=== PATIENT | female | born 1960 | race African-American/Black ===

== ENCOUNTER 2018-11-06 17:26 | Inpatient (IN) | payer OTHER ==
[2018-11-06 17:44] VITALS: BMI 20.2
--- NOTE | 2018-11-06 18:38 | HP ---
CIWA Score Nausea/Vomitin-No Nausea/No Vomiting Muscle Tremors: 1-None Visible, but [place] Anxiety: 3 Agitation: 3 Paroxysmal Sweats: 2 Orientation: 1-Uncertain about Date Tacttile Disturbances: 0-None Auditory Disturbances: 0-None Visual Disturbances: 0-None Headache: 3-Moderate CIWA-Ar Total Score: 13 - Admission Criteria OASAS Guidelines: Admission for Medically Managed Detox: Requires at least one of the followin. CIWA greater than 12 2. Seizures within the past 24 hours 3. Delirium tremens within the past 24 hours 4. Hallucinations within the past 24 hours 5. Acute intervention needed for co occurring medical disorder 6. Acute intervention needed for co occurring psychiatric disorder 7. Severe withdrawal that cannot be handled at a lower level of care (continued vomiting, continued diarrhea, abnormal vital signs) requiring intravenous medication and/or fluids 8. Patient presents the following: CIWA greater than 12 Admission Criteria Met: Admission criteria met Admission ROS S - HPI Chief Complaint: " i need to get off the pills" Allergies/Adverse Reactions: Allergies Allergy/AdvReac Type Severity Reaction Status Date / Time No Known Allergies Allergy Verified 09/03/15 15:03 History of Present Illness: 58 yo female with hx of nicotine, nicola and xanax dependence is here seeking detox , patient is self referred. Last detox [facility] August 2015. Pmhx: Hep C, HTN. Denies suicidal / homicidal ideation or hx of suicide attempts. Patient is linked to [facility] at [place] on methadone maintenance 70 mg , last medicated 11/05/18. Denies hx of seizures or blackouts. Exam Limitations: No Limitations - Ebola screening Have you traveled outside of the country in the last 21 days: No (N) Have you had contact with anyone from an Ebola affected area: No Have you been sick,other than usual withdrawal symptoms: No Do you have a fever: No - Review of Systems Constitutional: Loss of Appetite, Changes in sleep, Weakness, Unintentional Wgt. Loss (20 lbs in the past six months) EENT: reports: No Symptoms Reported Respiratory: reports: No Symptoms reported Cardiac: reports: No Symptoms Reported GI: reports: Poor Appetite, Poor Fluid Intake, Abdominal cramping : reports: No Symptoms Reported Musculoskeletal: reports: No Symptoms Reported Integumentary: reports: No Symptoms Reported Neuro: reports: Headache Endocrine: reports: Increased Thirst Psychiatric: reports: Orientated x3, Anxious Other Systems: Reviewed and Negative Patient History - Patient Medical History Hx Anemia: No Hx Asthma: No Hx Chronic Obstructive Pulmonary Disease (COPD): No Hx Cancer: No Hx Cardiac Disorders: No Hx Hypertension: Yes (on meds.) Hx Hypercholesterolemia: No Hx Pacemaker: No HX Cerebrovascular Accident: No Hx Seizures: No Hx Dementia: No Hx Diabetes: No Hx Gastrointestinal Disorders: No Hx Liver Disease: Yes (Hep C) Hx Genitourinary Disorders: No Hx Sexually Transmitted Disorders: No Hx Renal Disease (ESRD): No Hx Thyroid Disease: No Hx Human Immunodeficiency Virus (HIV): No Hx Hepatitis C: Yes (treated) Hx Depression: Yes (past psych eval) Hx Suicide Attempt: No Hx Bipolar Disorder: No Hx Schizophrenia: No - Patient Surgical History Past Surgical History: No - PPD History Previous Implant?: No Documented Results: Negative w/o proof Date: 09/05/15 PPD to be Administered?: Yes - Smoking Cessation Smoking history: Current every day smoker Have you smoked in the past 12 months: Yes Aproximately how many cigarettes per day: 3 Hx Chewing Tobacco Use: No Initiated information on smoking cessation: Yes 'Breaking Loose' booklet given: 11/06/18 - Substance & Tx. History Hx Alcohol Use: Yes Hx Substance Use: Yes Substance Use Type: Cocaine, Tranquilizers Hx Substance Use Treatment: Yes - Substances Abused xanax Route: Oral Frequency: Daily Amount used: 2 mg Age of first use: 58 Date of Last Use: 10/23/18 klonopin Route: Oral Frequency: Daily Amount used: 1 mg Age of first use: 58 Date of Last Use: 11/05/18 Cocaine Route: Smoking Frequency: 3-6 times per week Amount used: $40 Age of first use: 24 Date of Last Use: 11/05/18 Family Disease History - Family Disease History Family Disease History: Heart Disease: Mother (htn), Other: Father (etoh) Admission Physical Exam [facility] - Vital Signs Vital Signs: Vital Signs - 24 hr 11/06/18 17:29 Temperature 97.7 F Pulse Rate 71 Respiratory 18 Rate Blood Pressure 127/83 - Physical General Appearance: Yes: Appropriately Dressed, Thin, Sweating, Anxious HEENTM: Yes: EOMI, Hearing grossly Normal, Normal ENT Inspection, Normocephalic , Normal Voice, RU, Pharynx Normal, Tm's normal Respiratory: Yes: Chest Non-Tender, Lungs Clear, Normal Breath Sounds, No Respiratory Distress, No Accessory Muscle Use Neck: Yes: Within Normal Limits Breast: Yes: Breast Exam Deferred Cardiology: Yes: Regular Rhythm, Regular Rate Abdominal: Yes: Normal Bowel Sounds, Non Tender, Flat, Soft Genitourinary: Yes: Within Normal Limits Back: Yes: Normal Inspection Musculoskeletal: Yes: full range of Motion, Gait Steady, Pelvis Stable Extremities: Yes: Normal Capillary Refill, Normal Inspection, Normal Range of Motion Neurological: Yes: alpine patroller II-XII NML intact, Fully Oriented, Alert, Motor Strength 5/5, Depressed Affect Integumentary: Yes: Normal Color, Warm, Moist Lymphatic: Yes: Within Normal Limits - Addiitonal Findings: Patient reports missed her Methadone dose today at her program, reports needed to attend to her sick mother this morning. c/o of mild opiod withdrawal. utox positive MTD, BZO, NICOLA. Will give one time dose of 20 mg tonight until methadone dose is verified with her program in the morning. - Diagnostic (1) Cocaine dependence Current Visit: Yes Status: Acute Qualifiers: Substance use status: uncomplicated Qualified Code(s): F14.20 - Cocaine dependence, uncomplicated (2) Opioid dependence on agonist therapy Current Visit: Yes Status: Chronic Comment: [facility] on methdone [place] 70 mg qd, last medicated yesterday 11/05/18. (3) Sedative, hypnotic or anxiolytic dependence with withdrawal, uncomplicated Current Visit: Yes Status: Acute (4) Hypertension Current Visit: Yes Status: Chronic Qualifiers: Hypertension type: essential hypertension Qualified Code(s): I10 - Essential (primary) hypertension (5) Hx of hepatitis C Current Visit: Yes Status: Chronic (6) At risk for dehydration due to poor fluid intake Current Visit: Yes Status: Acute (7) Nicotine dependence Current Visit: Yes Status: Acute Qualifiers: Nicotine product type: cigarettes Substance use status: uncomplicated Qualified Code(s): F17.210 - Nicotine dependence, cigarettes, uncomplicated Cleared for Admission [facility] - Detox or Rehab S Level of Care: Medically Managed Detox Regimen/Protocol: Valium S Breath Alcohol Content Breath Alcohol Content: 0 Urine Pregancy Test - Result Urine Test Results: Negative- NO Line Present Urine Drug Screen - Results Drug Screen Negative: No Urine Drug Screen Results: NICOLA-Cocaine, BZO-Benzodiazepines, MTD-Methadone Inpatient Rehab Admission - Rehab Decision to Admit Inpatient rehab admission?: No
[2018-11-06] MEDS ORDERED: NICOTINE POLACRILEX 2 MG GUM BC PRN (18:48)
[2018-11-06] MEDS ORDERED: MENTHOL/PHENOL 1 EACH UD MM PRN (18:48)
[2018-11-06] MEDS ORDERED: MAG HYDROX/AL HYDROX/SIMETH 30 ML UNIT-DOSE CUP PO PRN (18:48)
[2018-11-06] MEDS ORDERED: ACETAMINOPHEN 325 MG TABLET (FP) PO PRN (18:48)
[2018-11-06] MEDS ORDERED: MAGNESIUM CITRATE 300 ML BOTTLE PO PRN (18:48)
[2018-11-06] MEDS ORDERED: guaiFENesin/D-METHORPHAN HB 10 ML UNIT-DOSE CUPS PO PRN (18:48)
[2018-11-06] MEDS ORDERED: LOPERAMIDE HCL 2 MG CAPSULE PO PRN (18:48)
[2018-11-06] MEDS ORDERED: IBUPROFEN 400 MG TABLET (FP) PO PRN (18:48)
[2018-11-06] MEDS ORDERED: P-EPHED 60MG/TRIPROLIDI 2.5MG TABLET PO PRN (18:48)
[2018-11-06] MEDS ORDERED: MAGNESIUM HYDROX 2400MG/30ML ORAL SUSPENSION 30 ML CUP PO PRN (18:48)
[2018-11-06] MEDS ORDERED: METHADONE HCL 10 MG TABLET PO ONE (22:15)
[2018-11-06] MEDS ORDERED: diazePAM 5 MG TABLET PO ONE (22:15)
[2018-11-06] MEDS: diazePAM 5 MG TABLET PO SCH (23:17)
[2018-11-06] MEDS: THIAMINE HCL 100 MG TABLET (FP) PO SCH (23:19)
[2018-11-06 23:33] LABS: URINE APPEARANCE SLCLOUDY; URINE BILIRUBIN NEGATIVE (<2.0 mg/dL); URINE COLOR YELLOW; URINE GLUCOSE (UA) NEGATIVE (NEGATIVE); URINE KETONE NEGATIVE (NEGATIVE); URINE LEUK ESTERASE TRACE (NEGATIVE); URINE NITRITE NEGATIVE (NEGATIVE); URINE PROTEIN NEGATIVE (NEGATIVE)
[2018-11-06 23:44] LABS: CALCIUM OXALATE CRYSTALS MODERATE /hpf (NONE SEEN); EPI CELLS RARE /HPF (FEW); URINE MUCUS RARE
[2018-11-07] MEDS: diazePAM 5 MG TABLET PO SCH ×3 (06:01→22:16)
--- NOTE | 2018-11-07 08:07 | EKG ---
Test Reason : Blood Pressure : / mmHG Vent. Rate : 045 BPM Atrial Rate : 045 BPM P-R Int : 156 ms QRS Dur : 072 ms QT Int : 544 ms P-R-T Axes : 075 047 032 degrees QTc Int : 470 ms SINUS BRADYCARDIA OTHERWISE NORMAL ECG NO PREVIOUS ECGS AVAILABLE Confirmed by MD BRIDGET, SUSHMA ([id number]) on 11/07/2018 8:07:34 AM Referred By: Confirmed By:SUSHMA GILL MD
[2018-11-07] MEDS ORDERED: METHADONE HCL 10 MG TABLET PO ONE (09:20)
[2018-11-07] MEDS ORDERED: METHADONE 40 MG, METHADONE 10 MG PO ONE (09:45)
[2018-11-07] MEDS ORDERED: METHADONE HCL 40 MG DISPERSABLE TABLET ONE (09:47)
[2018-11-07] MEDS ORDERED: METHADONE HCL 10 MG TABLET ONE (09:47)
[2018-11-07] MEDS: PRENATAL VITAMINS W/ FOLIC ACID TABLET (FP) PO SCH (10:26)
[2018-11-07] MEDS: NICOTINE 14 MG/24 HOURS TOPICAL PATCH TD SCH (10:26)
--- NOTE | 2018-11-07 10:50 | PN ---
S CIWA - CIWA Score Nausea/Vomitin-No Nausea/No Vomiting Muscle Tremors: 3 Anxiety: 3 Agitation: 3 Paroxysmal Sweats: 3 Orientation: 0-Oriented Tacttile Disturbances: 0-None Auditory Disturbances: 0-None Visual Disturbances: 0-None Headache: 0-None Present CIWA-Ar Total Score: 12 BHS Progress Note (SOAP) Subjective: agitation stomach ache sweats shakes body aches Objective: 11/07/18 10:49 Vital Signs Temperature 98.6 F 11/07/18 10:09 Pulse Rate 61 11/07/18 10:09 Respiratory Rate 16 11/07/18 10:09 Blood Pressure 127/78 11/07/18 10:09 O2 Sat by Pulse Oximetry (%) Laboratory Tests 11/06/18 22:25 Urine Color Yellow Urine Appearance Slcloudy Urine pH 6.0 Ur Specific [place] 1.020 Urine Protein Negative Urine Glucose (UA) Negative Urine Ketones Negative Urine Blood Negative Urine Nitrite Negative Urine Bilirubin Negative Urine Urobilinogen 2.0 H Ur Leukocyte Esterase Trace Urine WBC (Auto) 1 Urine RBC (Auto) 15 Ur Epithelial Cells Rare Calcium Oxalate Crystal Moderate Urine Mucus Rare rest of labs pending aaox3 ambulating no acute distress Assessment: 11/07/18 10:50 withdrawal sx Plan: continue detox increase fluids MOM/mylanta prn
[2018-11-07 11:30] LABS: ALBUMIN 2.8 g/dl (3.4-5.0); ALK PHOS 72 U/L (45-117); ANION GAP 4 MMOL/L (8-16); BILIRUBIN,TOTAL 0.3 mg/dL (0.2-1); BLOOD UREA NITROGEN 8 mg/dL (7-18); CALCIUM 8.1 mg/dL (8.5-10.1); CHLORIDE 105 mmol/L (98-107); CO2 32 mmol/L (21-32); CREATININE 0.6 mg/dL (0.55-1.3); GLUCOSE,RANDOM 81 mg/dL (74-106); POTASSIUM 3.6 mmol/L (3.5-5.1); SGOT/AST 18 U/L (15-37); SGPT/ALT 14 U/L (13-61); SODIUM 141 mmol/L (136-145); TOT PROT 6.1 g/dl (6.4-8.2)
[2018-11-07 11:58] LABS: HEMOGLOBIN 10.9 GM/dL (10.7-15.3); MCH 30.3 pg (25.7-33.7); MEAN PLT VOLUME 9.2 fl (7.5-11.1); PLATELET COUNT 201 K/MM3 (134-434); RDW 15.1 % (11.6-15.6); WHITE BLOOD COUNT 5.3 K/mm3 (4.0-10.0)
--- NOTE | 2018-11-07 19:40 | EKG ---
Test Reason : Blood Pressure : / mmHG Vent. Rate : 054 BPM Atrial Rate : 054 BPM P-R Int : 158 ms QRS Dur : 076 ms QT Int : 494 ms P-R-T Axes : 070 035 043 degrees QTc Int : 468 ms SINUS BRADYCARDIA WITH SINUS ARRHYTHMIA NONSPECIFIC T WAVE ABNORMALITY PROLONGED QT ABNORMAL ECG WHEN COMPARED WITH ECG OF 06-NOV-2018 22:57, INVERTED T WAVES HAVE REPLACED NONSPECIFIC T WAVE ABNORMALITY IN ANTERIOR LEADS Confirmed by MD BRIDGET, SUSHMA ([id number]) on 11/07/2018 7:39:45 PM Referred By: Confirmed By:SUSHMA GILL MD
[2018-11-07] MEDS: THIAMINE HCL 100 MG TABLET (FP) PO SCH (22:16)
[2018-11-07] MEDS: MELATONIN 5 MG TABLETS PO PRN (22:16)
[2018-11-08] MEDS: diazePAM 5 MG TABLET PO PRN ×2 (00:22→14:45)
[2018-11-08] MEDS ORDERED: METHADONE HCL 10 MG TABLET ONE (04:42)
[2018-11-08] MEDS ORDERED: METHADONE HCL 40 MG DISPERSABLE TABLET ONE (04:42)
[2018-11-08] MEDS: METHADONE 40 MG, METHADONE 30 MG PO SCH (05:55)
[2018-11-08] MEDS ORDERED: METHADONE HCL 40 MG DISPERSABLE TABLET PO SCH (06:00)
[2018-11-08] MEDS: PRENATAL VITAMINS W/ FOLIC ACID TABLET (FP) PO SCH (10:26)
[2018-11-08] MEDS: NICOTINE 14 MG/24 HOURS TOPICAL PATCH TD SCH (10:26)
[2018-11-08] MEDS: diazePAM 5 MG TABLET PO SCH ×2 (10:26→22:07)
--- NOTE | 2018-11-08 12:07 | PN ---
[facility] CIWA - CIWA Score Nausea/Vomitin-No Nausea/No Vomiting Muscle Tremors: 3 Anxiety: 3 Agitation: 3 Paroxysmal Sweats: 3 Orientation: 0-Oriented Tacttile Disturbances: 0-None Auditory Disturbances: 0-None Visual Disturbances: 0-None Headache: 0-None Present CIWA-Ar Total Score: 12 BHS Progress Note (SOAP) Subjective: constipation sweats interrupted sleep Objective: 11/08/18 12:07 Vital Signs Temperature 98.1 F 11/08/18 09:49 Pulse Rate 51 L 11/08/18 09:49 Respiratory Rate 18 11/08/18 09:49 Blood Pressure 119/65 11/08/18 09:49 O2 Sat by Pulse Oximetry (%) Laboratory Tests 11/06/18 11/07/18 11/07/18 22:25 08:00 08:00 WBC 5.3 RBC 3.60 Hgb 10.9 Hct 32.0 L D MCV 89.0 MCH 30.3 MCHC 34.0 RDW 15.1 Plt Count 201 MPV 9.2 Sodium 141 Potassium 3.6 Chloride 105 Carbon Dioxide 32 Anion Gap 4 L BUN 8 Creatinine 0.6 Creat Clearance w eGFR > 60 Random Glucose 81 Calcium 8.1 L Total Bilirubin 0.3 AST 18 ALT 14 Alkaline Phosphatase 72 Total Protein 6.1 L Albumin 2.8 L Urine Color Yellow Urine Appearance Slcloudy Urine pH 6.0 Ur Specific [place] 1.020 Urine Protein Negative Urine Glucose (UA) Negative Urine Ketones Negative Urine Blood Negative Urine Nitrite Negative Urine Bilirubin Negative Urine Urobilinogen 2.0 H Ur Leukocyte Esterase Trace Urine WBC (Auto) 1 Urine RBC (Auto) 15 Ur Epithelial Cells Rare Calcium Oxalate Crystal Moderate Urine Mucus Rare RPR Titer 11/07/18 08:00 WBC RBC Hgb Hct MCV MCH MCHC RDW Plt Count MPV Sodium Potassium Chloride Carbon Dioxide Anion Gap BUN Creatinine Creat Clearance w eGFR Random Glucose Calcium Total Bilirubin AST ALT Alkaline Phosphatase Total Protein Albumin Urine Color Urine Appearance Urine pH Ur Specific [place] Urine Protein Urine Glucose (UA) Urine Ketones Urine Blood Urine Nitrite Urine Bilirubin Urine Urobilinogen Ur Leukocyte Esterase Urine WBC (Auto) Urine RBC (Auto) Ur Epithelial Cells Calcium Oxalate Crystal Urine Mucus RPR Titer Nonreactive aaox3 ambulating no acute distress Assessment: 11/08/18 12:08 withdrawal sx Plan: continue detox increase fluids mom prn
[2018-11-08] MEDS: MELATONIN 5 MG TABLETS PO PRN (22:07)
[2018-11-08] MEDS: THIAMINE HCL 100 MG TABLET (FP) PO SCH (22:07)
[2018-11-09] MEDS ORDERED: METHADONE HCL 10 MG TABLET ONE (04:31)
[2018-11-09] MEDS ORDERED: METHADONE HCL 40 MG DISPERSABLE TABLET ONE (04:31)
[2018-11-09] MEDS: METHADONE 40 MG, METHADONE 30 MG PO SCH (05:57)
[2018-11-09] MEDS: PRENATAL VITAMINS W/ FOLIC ACID TABLET (FP) PO SCH (10:31)
[2018-11-09] MEDS: NICOTINE 14 MG/24 HOURS TOPICAL PATCH TD SCH (10:31)
[2018-11-09] MEDS: diazePAM 5 MG TABLET PO SCH ×2 (10:31→22:31)
--- NOTE | 2018-11-09 10:40 | PN ---
BHS Progress Note (SOAP) Subjective: my stomach feeling much better i had a bowl movement. anxiety Objective: 11/09/18 10:39 Vital Signs Temperature 98.1 F 11/09/18 09:32 Pulse Rate 59 L 11/09/18 09:32 Respiratory Rate 16 11/09/18 09:32 Blood Pressure 105/66 11/09/18 09:32 O2 Sat by Pulse Oximetry (%) aaox3 ambulating no acute distress Assessment: 11/09/18 10:39 mild withdrawal sx Plan: continue detox increase fluids d/c in am
[2018-11-09] MEDS: diazePAM 5 MG TABLET PO PRN ×2 (14:36→18:46)
[2018-11-09] MEDS: THIAMINE HCL 100 MG TABLET (FP) PO SCH (22:31)
[2018-11-09] MEDS: MELATONIN 5 MG TABLETS PO PRN (22:32)
[2018-11-10] MEDS ORDERED: METHADONE HCL 40 MG DISPERSABLE TABLET ONE (04:17)
[2018-11-10] MEDS ORDERED: METHADONE HCL 10 MG TABLET ONE (04:18)
[2018-11-10] MEDS: METHADONE 40 MG, METHADONE 30 MG PO SCH (05:46)
[2018-11-10 09:04] VITALS: BP 101/64; PULSE 59; TEMP 97.8
[2018-11-10] MEDS ORDERED: diazePAM 5 MG TABLET PO SCH (10:00)
[2018-11-10] MEDS: PRENATAL VITAMINS W/ FOLIC ACID TABLET (FP) PO SCH (10:53)
[2018-11-10] MEDS: NICOTINE 14 MG/24 HOURS TOPICAL PATCH TD SCH (10:54)
--- NOTE | 2018-11-10 11:15 | DS ---
[facility] Detox Discharge Summary Admission Date: 11/06/18 Discharge Date: 11/10/18 - History Present History: Alcohol Dependence, Cocaine Dependence, Sedative Dependence, MMTP - Physical Exam Results Vital Signs: Vital Signs Temperature 97.8 F 11/10/18 09:03 Pulse Rate 59 L 11/10/18 09:03 Respiratory Rate 18 11/10/18 09:03 Blood Pressure 101/64 11/10/18 09:03 O2 Sat by Pulse Oximetry (%) - Treatment Hospital Course: Detox Protocol Followed, Detoxed Safely, Responded well, Discharged Condition Good, Rehab Referral Accepted - Medication Discharge Medications: Ambulatory Orders Hydrochlorothiazide [Hctz -] 25 mg PO DAILY 09/03/15 - Diagnosis (1) At risk for dehydration due to poor fluid intake Current Visit: Yes Status: Chronic (2) Cocaine dependence Current Visit: Yes Status: Chronic Qualifiers: Substance use status: uncomplicated Qualified Code(s): F14.20 - Cocaine dependence, uncomplicated (3) Nicotine dependence Current Visit: Yes Status: Chronic Qualifiers: Nicotine product type: cigarettes Substance use status: uncomplicated Qualified Code(s): F17.210 - Nicotine dependence, cigarettes, uncomplicated (4) Sedative, hypnotic or anxiolytic dependence with withdrawal, uncomplicated Current Visit: Yes Status: Chronic (5) Hx of hepatitis C Current Visit: Yes Status: Chronic (6) Hypertension Current Visit: Yes Status: Chronic Qualifiers: Hypertension type: essential hypertension Qualified Code(s): I10 - Essential (primary) hypertension (7) Xanax use disorder, moderate Current Visit: Yes Status: Chronic - AMA Did Patient Leave Against Medical Advice: No (referred to [facility] rehab)
== END 2018-11-10 11:59 | disposition home or self-care (01) | DRG 773 ==
LOC: YASAS 17:26 → Y6N 21:53
PROVIDERS: ADMIT Surgery; ATTEND Surgery
PROC: HZ2ZZZZ Detoxification Services for Substance Abuse Treatment (ICD-10-PCS; principal; 2018-11-06)
DX: F10.230 Alcohol dependence with withdrawal, uncomplicated (principal); F13.230 Sedative, hypnotic or anxiolytic dependence with withdrawal, uncomplicated; F14.20 Cocaine dependence, uncomplicated; F11.20 Opioid dependence, uncomplicated; F17.210 Nicotine dependence, cigarettes, uncomplicated; F32.9 Major depressive disorder, single episode, unspecified; I10 Essential (primary) hypertension; Z86.19 Personal history of other infectious and parasitic diseases; Z91.89 Other specified personal risk factors, not elsewhere classified
CPT/HCPCS: 36415; 80053; 81003; 81015; 85027; 86593; 93005; 93010

== ENCOUNTER 2022-06-26 11:59 | Inpatient (IN) | payer OTHER ==
[2022-06-26 12:36] VITALS: BMI 19.1
[2022-06-26] MEDS ORDERED: ACETAMINOPHEN 325 MG TABLET (FP) PO PRN ×2 (14:03)
[2022-06-26] MEDS ORDERED: cloNIDine HCL 0.1 MG TABLET PO PRN (14:03)
[2022-06-26] MEDS ORDERED: DICYCLOMINE HCL 10 MG CAPSULE PO PRN (14:03)
[2022-06-26] MEDS ORDERED: methaDONE HCL 10 MG TABLET (FOR DETOX USE ONLY) PO ONE ×2 (14:03→14:15)
[2022-06-26] MEDS ORDERED: NICOTINE 10 MG CARTRIDGE (INHALER) IH PRN (14:03)
[2022-06-26] MEDS ORDERED: LOPERAMIDE HCL 2 MG CAPSULE PO PRN (14:03)
[2022-06-26] MEDS ORDERED: BISMUTH SUBSALICYLATE 524 MG/30 ML PO PRN (14:03)
[2022-06-26] MEDS ORDERED: ONDANSETRON *ODT* 4 MG TABLET SL PRN (14:03)
[2022-06-26] MEDS ORDERED: IBUPROFEN 400 MG TABLET (FP) PO PRN (14:03)
[2022-06-26] MEDS ORDERED: MAG HYDROX/AL HYDROX/SIMETH 30 ML UNIT-DOSE CUP PO PRN (14:03)
[2022-06-26] MEDS ORDERED: BENZOCAINE/MENTHOL (CHLORASEPTIC ) LOZENGE MM PRN (14:03)
[2022-06-26] MEDS ORDERED: MAGNESIUM CITRATE 300 ML BOTTLE PO PRN (14:03)
[2022-06-26] MEDS ORDERED: MAGNESIUM HYDROX 2400MG/30ML ORAL SUSPENSION 30 ML CUP PO PRN (14:03)
[2022-06-26] MEDS ORDERED: NALOXONE HCL (KLOXXADO) 8 MG SPRAY NS PRN (14:03)
[2022-06-26] MEDS ORDERED: methaDONE HCL 10 MG TABLET (FOR DETOX USE ONLY) ONE (15:33)
[2022-06-26] MEDS: hydrOXYzine PAMOATE 25 MG CAPSULE (FP) PO SCH ×2 (18:04→21:53)
[2022-06-26] MEDS: THIAMINE HCL 100 MG TABLET (FP) PO SCH (21:53)
[2022-06-26] MEDS ORDERED: MELATONIN 5 MG TABLETS PO SCH (22:00)
[2022-06-27] MEDS: hydrOXYzine PAMOATE 25 MG CAPSULE (FP) PO SCH ×5 (05:49→23:08)
[2022-06-27] MEDS: METHOCARBAMOL 500 MG TABLET PO PRN ×2 (05:49→10:49)
[2022-06-27] MEDS: PRENATAL VITAMINS W/ FOLIC ACID TABLET (FP) PO SCH (10:49)
[2022-06-27] MEDS: IBUPROFEN 600 MG TABLET (FP) PO PRN (10:57)
[2022-06-27 11:23] LABS: HEMATOCRIT 36.2 % (32.4-45.2); HEMOGLOBIN 11.8 GM/dL (10.7-15.3); MCH 29.2 pg (25.7-33.7); MCHC 32.5 g/dl (32.0-36.0); MEAN CELL VOLUME 89.9 fl (80-96); MEAN PLT VOLUME 8.8 fl (7.5-11.1); PLATELET COUNT 266 10^3/uL (134-434); RBC 4.03 M/mm3 (3.60-5.2); RDW 14.3 % (11.6-15.6); WHITE BLOOD COUNT 6.2 K/mm3 (4.0-10.0)
[2022-06-27 11:29] LABS: ALBUMIN 2.9 g/dl (3.4-5.0); BLOOD UREA NITROGEN 6.6 mg/dL (7-18); CALCIUM 8.9 mg/dL (8.5-10.1)
[2022-06-27 11:33] LABS: BILIRUBIN,TOTAL 0.2 mg/dL (0.2-1); CREATININE 0.7 mg/dL (0.55-1.3); TOT PROT 6.3 g/dl (6.4-8.2)
[2022-06-27] MEDS ORDERED: FLU VACC QS2022-23(6MOS UP)/PF 60 MCG/0.5 ML SYRINGE IM ONE (12:00)
[2022-06-27] MEDS: MELATONIN 5 MG TABLETS PO SCH (23:08)
[2022-06-27] MEDS: THIAMINE HCL 100 MG TABLET (FP) PO SCH (23:08)
[2022-06-28] MEDS: hydrOXYzine PAMOATE 25 MG CAPSULE (FP) PO SCH ×5 (06:49→22:31)
[2022-06-28] MEDS ORDERED: methaDONE HCL 10 MG TABLET (FOR DETOX USE ONLY) PO ONE ×2 (10:00)
[2022-06-28] MEDS: PRENATAL VITAMINS W/ FOLIC ACID TABLET (FP) PO SCH (11:05)
[2022-06-28] MEDS: diazePAM 5 MG TABLET PO PRN ×2 (19:03→22:30)
[2022-06-28] MEDS: METHOCARBAMOL 500 MG TABLET PO PRN (19:03)
[2022-06-28] MEDS: MELATONIN 5 MG TABLETS PO SCH (22:30)
[2022-06-28] MEDS: THIAMINE HCL 100 MG TABLET (FP) PO SCH (22:30)
[2022-06-29] MEDS: hydrOXYzine PAMOATE 25 MG CAPSULE (FP) PO SCH ×5 (06:21→22:39)
[2022-06-29] MEDS: IBUPROFEN 600 MG TABLET (FP) PO PRN (10:43)
[2022-06-29] MEDS: PRENATAL VITAMINS W/ FOLIC ACID TABLET (FP) PO SCH (10:43)
[2022-06-29] MEDS: METHOCARBAMOL 500 MG TABLET PO PRN ×2 (10:44→22:39)
[2022-06-29] MEDS: diazePAM 5 MG TABLET PO PRN (10:44)
[2022-06-29] MEDS: THIAMINE HCL 100 MG TABLET (FP) PO SCH (22:38)
[2022-06-29] MEDS: MELATONIN 5 MG TABLETS PO SCH (22:38)
[2022-06-30] MEDS ORDERED: methaDONE HCL 10 MG TABLET PO ONE (06:00)
[2022-06-30] MEDS: hydrOXYzine PAMOATE 25 MG CAPSULE (FP) PO SCH ×2 (06:33→11:19)
[2022-06-30 09:17] VITALS: BP 137/78; PULSE 86; RESP 16; TEMP 97.8
[2022-06-30] MEDS ORDERED: methaDONE HCL 10 MG TABLET (FOR DETOX USE ONLY) PO ONE (10:00)
[2022-06-30] MEDS: PRENATAL VITAMINS W/ FOLIC ACID TABLET (FP) PO SCH (11:18)
[2022-06-30] MEDS: METHOCARBAMOL 500 MG TABLET PO PRN (11:18)
[2022-06-30] MEDS: IBUPROFEN 600 MG TABLET (FP) PO PRN (11:19)
== END 2022-06-30 11:38 | disposition home or self-care (01) | DRG 773 ==
LOC: YASAS 11:59 → Y6N 14:42
PROVIDERS: ADMIT Allergy & Immunology; ATTEND Surgery
PROC: HZ2ZZZZ Detoxification Services for Substance Abuse Treatment (ICD-10-PCS; principal; 2022-06-26)
DX: F11.23 Opioid dependence with withdrawal (principal); F14.20 Cocaine dependence, uncomplicated; F17.210 Nicotine dependence, cigarettes, uncomplicated; F19.282 Other psychoactive substance dependence with psychoactive substance-induced sleep disorder; U07.1 COVID-19; I10 Essential (primary) hypertension; M54.50 Low back pain, unspecified; G89.29 Other chronic pain; R76.8 Other specified abnormal immunological findings in serum; R63.4 Abnormal weight loss; Z68.1 Body mass index [BMI] 19.9 or less, adult; Z86.19 Personal history of other infectious and parasitic diseases
CPT/HCPCS: 36415; 80053; 85027; 86593; 86780; 87811; 93005; 93010; C9803-CS; G0008; Q2036; U0003; U0005